=== PATIENT | female | born 1970 | race Caucasian/White ===

== ENCOUNTER 2017-12-01 08:15 | Day surgery (SDC) | payer BC, OTHER ==
[~2017-12-01] VITALS: Ht 165.1 cm; Wt 109.9 kg
[2017-12-01] VITALS (9 sets, daily range): BP systolic 116–149; BP diastolic 79–99; PULSE 64–75; TEMP 97.6
[2017-12-01] MEDS ORDERED: PRINIVIL10 MG PO (08:28)
[2017-12-01] MEDS ORDERED: GLUCOPHAGE XR500 M1 PO (08:28)
[2017-12-01 08:54] LABS: HEMOGLOBIN 15.4 g/dl (12.5-16.0); MEAN CELL VOLUME 91 fl (80.0-100.0); MEAN CORPUSCULAR HEMOGLOBIN 32 pg (27.0-31.0); MEAN CORPUSCULAR HGB CONC 35 g/dl (33.0-37.0); MEAN PLATELET VOLUME 10.3 fl (7.4-10.4); PLATELET COUNT 272 K/mm3 (130-400); RED BLOOD COUNT 4.85 M/mm3 (4.10-5.30); REDCELL DISTRIBUTION WIDTH-CV 12.7 % (11.5-14.5)
[2017-12-01 09:01] LABS: PROTHROMBIN TIME 12.1 SECONDS (9.7-12.8)
[2017-12-01 09:07] LABS: CALCIUM 9.6 mg/dL (8.4-10.2); CREATININE, serum 0.64 mg/dL (0.52-1.25); POTASSIUM 4.3 mmol/L (3.4-5.0)
[2017-12-01] MEDS ORDERED: ASPIRIN E.C. 8181 MG PO (10:57)
== END 2017-12-01 14:10 | disposition home or self-care (01) ==
LOC: COL.CAR 08:15
PROVIDERS: Internal Medicine Cardiovascular Disease
DX: I25.10 Atherosclerotic heart disease of native coronary artery without angina pectoris (principal); R94.39 Abnormal result of other cardiovascular function study; I10 Essential (primary) hypertension; E11.9 Type 2 diabetes mellitus without complications; Z79.82 Long term (current) use of aspirin; Z79.84 Long term (current) use of oral hypoglycemic drugs; Z88.4 Allergy status to anesthetic agent; Z82.49 Family history of ischemic heart disease and other diseases of the circulatory system; Z87.891 Personal history of nicotine dependence
CPT/HCPCS: J1644; J2250; J3010; Q9967